=== PATIENT | male | born 1970 | race Caucasian/White ===

== ENCOUNTER 2021-02-10 13:23 | Emergency (ER) | payer OTHER ==
[~2021-02-10] VITALS: Ht 177.8 cm; Wt 93.0 kg
[2021-02-10] MEDS ORDERED: HYOS0.375T PO (13:31)
[2021-02-10] MEDS ORDERED: ATOR20 PO (13:32)
[2021-02-10] MEDS ORDERED: TRIA50 PO (13:43)
[2021-02-10] MEDS ORDERED: AMIT25 PO (14:03)
[2021-02-10] MEDS ORDERED: OLAN2.5 PO (14:04)
[2021-02-10] MEDS ORDERED: MONT10T PO (14:04)
[2021-02-10] MEDS ORDERED: SERT50 PO (14:04)
[2021-02-10] MEDS ORDERED: GABA100 PO (14:04)
[2021-02-10] MEDS ORDERED: PRAZ1 PO (14:05)
[2021-02-10 14:16] LABS: BASOPHILS ABSOLUTE AUTO 0.01 K/mm3 (0.00-0.23); BASOPHILS PERCENT AUTO 0 % (0-2); EOSINOPHILS ABSOLUTE AUTO 0.05 K/mm3 (0.00-0.68); EOSINOPHILS PERCENT AUTO 1 % (0-6); Hematocrit 46.8 % (33.0-51.0); Hemoglobin 17.5 g/dL (11.5-16.0); IMMATURE GRAN ABSOLUTE AUTO 0.02 K/mm3 (0.00-0.10); IMMATURE GRAN PERCENT AUTO 0 % (0-1); LYMPHOCYTES ABSOLUTE AUTO 0.86 K/mm3 (0.84-5.20); LYMPHOCYTES PERCENT AUTO 11 % (21-46); MONOCYTES ABSOLUTE AUTO 0.49 K/mm3 (0.16-1.47); MONOCYTES PERCENT AUTO 7 % (4-13); Mean Corpuscular HGB 32.3 pg (26.0-34.0); Mean Corpuscular HGB Conc 37.4 g/dL (31.5-36.5); Mean Corpuscular Volume 86 fL (80-100); Mean Platelet Volume 7.9 fL (9.1-12.4); NEUTROPHILS ABSOLUTE AUTO 6.15 K/mm3 (1.96-9.15); NEUTROPHILS PERCENT AUTO 81 % (41-73); Platelet Count 208 K/mm3 (150-400); RDW Coefficient Variation 12.3 % (11.7-14.2); Red Blood Cell Count 5.42 M/mm3 (3.80-5.20); White Blood Cell Count 7.58 K/mm3 (4.00-11.30)
[2021-02-10 14:30] LABS: International Normalized Ratio 1.02; Prothrombin Time Results 10.7 Sec (9.7-11.5)
[2021-02-10 14:37] LABS: Albumin, Blood 3.8 g/dL (3.4-5.0); Bilirubin, Total 2.7 mg/dL (0.1-1.0); Bun/Creatinine Ratio 20.3 (12.0-20.0); Calcium, Blood 9.2 mg/dL (8.5-10.1); Creatinine, Blood 1.18 mg/dL (0.40-1.00); Globulin, Blood 3.9 g/dL (2.2-4.0); Potassium, Blood 3.9 mmol/L (3.5-5.5); Total Protein, Blood 7.7 g/dL (6.4-8.2)
== END 2021-02-10 17:20 | disposition home or self-care (01) ==
LOC: EDSEX 13:23 → ER 13:23
PROVIDERS: Physician Assistant
DX: R20.2 Paresthesia of skin (principal); R20.0 Anesthesia of skin; F32.9 Major depressive disorder, single episode, unspecified; F43.10 Post-traumatic stress disorder, unspecified; Z88.0 Allergy status to penicillin; Z79.899 Other long term (current) drug therapy; Z86.73 Personal history of transient ischemic attack (TIA), and cerebral infarction without residual deficits
CPT/HCPCS: 70450; 80053; 85025; 85610; 93005; 93010; 96374; 99284-25; A9270; J2405; J7030